=== PATIENT | female | born 1950 | race Caucasian/White ===

== ENCOUNTER → 2018-11-20 05:37 | Outpatient (REF) | payer MEDICARE, BC, SELFPAY ==
[2018-11-24 06:25] LABS: QuantiFERON-TB Gold Plus Positive (Negative)
== END ==
LOC: LAB 05:37
PROVIDERS: Visit Provider Emergency Medicine
DX: J18.9 Pneumonia, unspecified organism (principal); E11.9 Type 2 diabetes mellitus without complications; E78.5 Hyperlipidemia, unspecified; I50.9 Heart failure, unspecified; K21.9 Gastro-esophageal reflux disease without esophagitis
CPT/HCPCS: 86480

== ENCOUNTER 2019-01-27 17:15 | Observation (INO) ==
--- NOTE | 2019-01-27 17:19 | Emergency Department Note ---
ED Disposition Clinical Impression: Precordial chest pain Disposition: Admitted as Observation Condition on Discharge: Good Referrals: Provider,Referral, [Primary Care Provider] - - Critical Care Critical Care Time: No Attestation: On , the high probability of a clinically significant, sudden or life threatening deterioration of the following system(s) required my full and direct attention, intervention and personal management. The time I documented below is in addition to time spent performing reported procedures but includes the following listed in this critical care notation. Medical Decision Making - Ammon Inquiry Pt receiving controlled substance: No Vital Signs: 01/27/19 17:16 01/27/19 17:53 Temperature 98.1 F Temperature Source Oral Pulse Rate [Apical] 80 95 H Respiratory Rate 20 Blood Pressure [Right Arm] 118/75 122/63 Blood Pressure Mean [Right Arm] 89 82 Blood Pressure Source [Right Arm] Automatic Cuff Automatic Cuff Blood Pressure Position [Right Arm] Sitting Sitting 02 Sat by Pulse Oximetry 96 97 Oxygen Delivery Method Nasal Cannula Nasal Cannula Oxygen Flow Rate (LPM) 3 2 - Lab Data Lab Results 01/27/19 17:10: WBC 7.4, RBC 4.72, Hgb 12.2, Hct 39.5, MCV 83.7, MCH 25.9 L, MCHC 31.0 L, RDW 14.8, Plt Count 238, MPV 8.6, Neut % (Auto) 67.9, Lymph % ( Auto) 22.4, [place] % (Auto) 5.2, Eos % (Auto) 4.1, Baso % (Auto) 0.4, Neut # (Auto) 5.0, Lymph # (Auto) 1.7, [place] # (Auto) 0.4, Eos # (Auto) 0.3, Baso # (Auto) 0.0 01/27/19 17:10: D-Dimer < 100 01/27/19 18:15: Sodium 144, Potassium 3.3 L, Chloride 106, Carbon Dioxide 33 H, Anion Gap 8.3, BUN 13, Creatinine 0.45 L, Estimated Creat Clear 89, Estimated GFR 139, Est GFR ( Amer) 169, Glucose 73 L, Calcium 8.6, Troponin I 0.07 H 01/27/19 19:12: POC Glucose 64 L Result diagrams: 01/27/19 17:10 01/27/19 18:15 Orders (Tests/Meds): ED MEDICATIONS Generic Name Dose Route Start Last Admin Trade Name Melodie PRN Reason Stop Dose Admin Sodium Chloride 10 ml 01/27/19 17:26 Saline Flush 10ml Syringe IV 02/26/19 17:25 NEEDED PRN Maintain IV Site - Radiology Data #1 Image(s): Chest Image Reviewed: Yes I reviewed the patient's radiology image persistent increased markings RLL - ECG Data Tracing #1 EKG interpreted by Geo Euceda MD: Rhythm: sinus Rate: 77 [place]: Left Ectopy: Premature atrial contractions Conduction: normal ST Segment Changes: none T Wave Changes: none Q Waves: none Poor R wave progression Low voltage QRS Prior electrocardiagrams reviewed. No change from prior tracings. - Physician Consults Physician Consulted: Mariya Trejo Time: 19:40 Reason -: Admission Comment/Response: Agrees to admit the patient to the hospital. We discussed the patient's clinical information, including history, exam, laboratory and radiology results and ED course. Per hospital procedure, I will write temporary bridge inpatient orders on the patient. Specific orders requested by the admitting physician: Serial cardiac enzymes Additional Consult: Neil - present Time: 20:15 Reason -: Pt condition Comment/Response: add ECHO and cardiology consult - FEMI Score for Non-Stemi Age of Patient: 60-69 years old Heart Rate: 70-89 bpm Systolic Blood Pressure: 100-119 mmHg Serum Creatinine: 0.40-0.79 mg/dl CHF [place] Class: I-No CHF Other Risk Factors: Elevated Cardiac Enzymes or Biomarkers Non-Stemi Risk Score: 128 General Adult HPI - General Stated complaint: chest pain Time Seen by Provider: 01/27/19 17:45 - History of Present Illness HPI narrative: Brought in by ambulance from [facility]. Complains of constant chest pain in her left anterior chest into her neck and left shoulder blades since this morning. Worsens with cough, but not with breathing. She does feel short of air. She does have a cough. Denies hemoptysis. Legs have been sore for a couple of weeks. Seen in this emergency department 01/07/19 for chest pain and was diagnosed with pneumonia. Treated with antibiotics. Still has a cough. No fever. - Related Data Home Medications Medication Instructions Recorded Confirmed Albuterol Sulfate [Albuterol 2.5 mg INHALATION Q6H 01/07/19 01/07/19 0.083% 2.5mg/3mL neb] Aspirin [Low Dose Aspirin EC] 81 mg PO DAILY 01/07/19 01/07/19 Bisacodyl [Women's Laxative] 5 mg PO QHS 01/07/19 Gabapentin [Gabapentin 100mg Cap] 100 mg PO DAILY 01/07/19 01/07/19 Insulin Detemir [Levemir U-100 30 unit SQ QHS 01/07/19 01/07/19 Insulin] Insulin Lispro [Humalog U-100 1 sliding scale dose SQ 01/07/19 01/07/19 Insulin] USEASDIRECTD Mirtazapine 30 mg PO HS 01/07/19 01/07/19 PARoxetine HCl [Paxil] 30 mg PO DAILY 01/07/19 01/07/19 Tiotropium [place] [Spiriva 1 puff IH DAILY 01/07/19 01/07/19 18mcg/puff inhaler] Ziprasidone HCl [Geodon 40mg 40 mg PO BID 01/07/19 01/07/19 capsule] raNITIdine HCl [Ranitidine HCl] 150 mg PO BID 01/07/19 01/07/19 Previous Rx's Medication Instructions Recorded diphenhydramine 25 mg capsule 50 mg PO QHS PRN #60 cap 11/26/18 tiotropium bromide 1.25 2 puff INHALATION DAILY #4 g 11/26/18 mcg/actuation mist for inhalation ziprasidone 60 mg capsule 60 mg PO BID #60 cap 11/26/18 ziprasidone 60 mg capsule 60 mg PO BID #60 cap 11/26/18 cefUROXime axetil [Ceftin 500mg 500 mg PO BID #20 tab 01/07/19 Tab (GEQ)] Allergies Allergy/AdvReac Type Severity Reaction Status Date / Time acetaminophen [From Tylenol] Allergy Unknown Verified 01/07/19 14:55 lansoprazole [From Prevacid] Allergy Unknown Verified 01/07/19 14:55 omeprazole [From Prilosec] Allergy Unknown Verified 01/07/19 14:55 Sulfa (Sulfonamide Allergy Unknown Verified 01/07/19 14:55 Antibiotics) [facility] History - Hepatitis A Screen Attestation statement:: This patient has been screened for Hepatitis A risk factors. Medical History: Reports:: Diabetes Mellitus Type 2 - Social History Smoking Status: Current every day smoker Tobacco Type: cigarettes # Packs/Day (cigarettes): 1 Alcohol Intake: never Occupational Status: retired ROS Obtained: Yes All systems reviewed & no additional complaints - Constitutional Constitutional: Denies fever(s) - Cardiovascular Cardiovascular: Reports chest pain, Denies diaphoresis - Respiratory Respiratory: Yes cough, Yes dyspnea - Gastrointestinal Gastrointestingal: Denies: abdominal pain, nausea, vomiting - Musculoskeletal Musculoskeletal: Reports other Comments: Bilateral leg pain and swelling Physical Exam - General General appearance: alert, in no apparent distress - Head Head exam: atraumatic, normocephalic - Eye Eye exam: Present: normal appearance, PERRL, EOMI - ENT ENT exam: Present: normal exam, mucous membranes moist - Neck Neck exam: Present: normal inspection, trachea midline - Chest Chest inspection: Present: normal inspection, symmetric chest wall rise, tenderness (Left anterior) - Respiratory Respiratory exam: Present: normal lung sounds bilaterally. Absent: respiratory distress - Cardiovascular Cardiovascular exam: Present: regular rate, normal rhythm, normal heart sounds - Abdominal Exam Abdominal exam: Present: soft. Absent: distention, tenderness, guarding - Extremities Exam Extremities exam: Present: other (Bilateral venous stasis changes, symmetric) - Neurological Exam Neurological exam: Present: alert - Psychiatric Psychiatric exam: Present: normal affect, normal mood - Skin Skin exam: Present: warm, dry
[2019-01-27 17:44] LABS: Basophils % 0.4 % (0.1-2.0); Eosinophils # 0.3 K/mm3 (0.0-0.4); Eosinophils % 4.1 % (0.1-12.0); Hematocrit 39.5 % (37.0-47.0); Hemoglobin 12.2 g/dL (12.2-16.2); Lymphocytes # 1.7 K/mm3 (0.7-4.5); Lymphocytes % 22.4 % (10-50); Mean Corpuscular Hemoglobin 25.9 pg (27.0-31.2); Mean Corpuscular Volume 83.7 fl (81-99); Mean Platelet Volume 8.6 fl (7.4-10.4); Monocytes # 0.4 K/mm3 (0.1-1.0); Monocytes % 5.2 % (1.7-9.3); Neutrophils % 67.9 % (37.0-80.0); Platelet Count 238 K/mm3 (142-424); Red Blood Count 4.72 M/mm3 (4.20-5.40); Red Cell Distribution Width 14.8 % (11.5-17.5); White Blood Count 7.4 K/mm3 (4.8-10.8)
[2019-01-27 18:32] LABS: Anion Gap 8.3 mEq/L (5-15); Calcium 8.6 mg/dL (8.5-10.1); Potassium 3.3 mmoL/L (3.5-5.1)
--- NOTE | 2019-01-28 07:33 | Pharmacy Consult Notes ---
[facility] Pharmacy VTE Monitoring - Patient Demographics Admission date: 01/27/19 Report Date: 01/28/19 Time: 07:32 Allergies/Adverse Reactions: Patient Allergies acetaminophen [From Tylenol] Allergy (Unknown, Verified 01/27/19 21:14) lansoprazole [From Prevacid] Allergy (Unknown, Verified 01/27/19 21:14) omeprazole [From Prilosec] Allergy (Unknown, Verified 01/27/19 21:14) Sulfa (Sulfonamide Antibiotics) Allergy (Unknown, Verified 01/27/19 21:14) Height: 1.7 m Weight: 107.955 kg Patient Problems: Current Active Problems Precordial chest pain (Acute) - VTE Risk Labs: VTE Related Lab Results Hgb 12.2 g/dL (12.2-16.2) 01/27/19 17:10 Hct 39.5 % (37.0-47.0) 01/27/19 17:10 Plt Count 238 K/mm3 (142-424) 01/27/19 17:10 BUN 13 mg/dL (7-18) 01/27/19 18:15 Creatinine 0.45 mg/dL (0.55-1.02) L 01/27/19 18:15 Estimated Creat Clear 89 mL/min (50-200) 01/27/19 18:15 Was VTE Risk Assessment Performed: Yes VTE Score: 8 VTE Risk Level: Moderate Risk - Prophylaxis VTE Prophylaxis Ordered?: Yes Types of VTE Prophylaxis: TEDS Knee High Location of Applied Device: Bilateral Lower Extremeties - VTE Diagnosis Confirmed Treatment or plan recommended: Continue Current Treatment
--- NOTE | 2019-01-28 07:58 | Consult Report ---
History of Present Illness Consult date: 01/28/19 Requesting physician: Julio Cesar Trejo Consult reason: chest pain Chief complaint: Chest pain Additional Medical History:: 1. Diabetes mellitus, treated for many years 2. Tobacco use since age 17 3. Hypertension 4. Hyperlipidemia History of present illness: 68-year-old white female resident of local residential complained of recurrent episodes of chest pressure and discomfort with radiation into the neck and the shoulder. Symptoms not particularly associated with exertion but patient was sent to the emergency department for further evaluation. EKG shows sinus rhythm with nonspecific ST-T abnormalities and troponins have returned mildly elevated consistent with non-ST elevation TN. Cardiology consulted for evaluation recommendations. Preliminary echocardiogram performed this morning shows preserved ejection fraction with small pericardial effusion and mild valvular disease. Patient relates history of previous TN x2 with remote cardiac cath greater than 5 years ago in [place], [place]. She does not recall intervention or stenting being performed. [facility] History Medical History: Reports:: Diabetes Mellitus Type 2, Hyperlipidemia, Hypertension *Have you ever received a pneumonia vaccine?: Yes *Have you received a flu vaccine this season?: Yes Other Surgeries: Yes: Hysterectomy-Total - *Social History Educational Level: Attended Grade School Smoking Status: Current every day smoker Tobacco Type: cigarettes # Packs/Day (cigarettes): 1 Alcohol Intake: never *Occupational Status:: retired Housing: residential *Travel in the last 8 weeks: None - Psychiatric History Expresses thoughts of harming self/others: None Suicide Plan Description: No Plan Family Hx:: Cancer Meds Home Medications Medication Instructions Recorded Confirmed Type Albuterol Sulfate [Albuterol 2.5 mg INHALATION Q6HP PRN 01/07/19 01/28/19 History 0.083% 2.5mg/3mL neb] Aspirin [Low Dose Aspirin EC] 81 mg PO DAILY 01/07/19 01/27/19 History Bisacodyl [Women's Laxative] 5 mg PO DAILYP PRN 01/07/19 01/28/19 History Gabapentin [Gabapentin 100mg Cap] 100 mg PO HS 01/07/19 01/28/19 History Insulin Detemir [Levemir U-100 30 unit SQ DAILY 01/07/19 01/27/19 History Insulin] Insulin Lispro [Humalog U-100 1 sliding scale dose SQ DIRECTED 01/07/19 01/28/19 History Insulin] Mirtazapine 30 mg PO HS 01/07/19 01/27/19 History PARoxetine HCl [Paxil] 30 mg PO DAILY 01/07/19 01/27/19 History Ziprasidone HCl [Geodon 40mg 40 mg PO BID 01/07/19 01/27/19 History capsule] raNITIdine HCl [Ranitidine HCl] 150 mg PO BID 01/07/19 01/27/19 History Fluticasone/Salmeterol [Advair 1 puff INHALATION BID 01/27/19 01/27/19 History 500/50mcg diskus] Latanoprost/Pf [Latanoprost 0.005% 1 drop OP HS 01/27/19 01/28/19 History Eye Drop] Tiotropium [place] [Spiriva 1 puff IH DAILY 01/27/19 01/27/19 History 18mcg/puff inhaler] diphenhydrAMINE HCl [Q-Dryl] 50 mg PO HSP PRN 01/27/19 01/28/19 History Ipratropium/Albuterol Sulfate 3 ml IH Q4HP PRN 01/28/19 01/28/19 History [Duoneb 3mL neb] Allergies Allergy/AdvReac Type Severity Reaction Status Date / Time acetaminophen [From Tylenol] Allergy Unknown Verified 01/27/19 21:14 lansoprazole [From Prevacid] Allergy Unknown Verified 01/27/19 21:14 omeprazole [From Prilosec] Allergy Unknown Verified 01/27/19 21:14 Sulfa (Sulfonamide Allergy Unknown Verified 01/27/19 21:14 Antibiotics) Review of Systems - *Cardiovascular Reports chest pain, Reports shortness of breath with activity - *Respiratory Reports cough, Reports shortness of breath with activity - *Gastrointestinal Denies abdominal pain, Denies loose stools - *Genitourinary Denies blood in urine - *Musculoskeletal Denies joint pain, Denies back pain - *Neurologic Denies seizure-like activity, Denies headache(s) Exam Vital signs and Labs for Last 24 Hours: Temp Pulse Resp BP Pulse Ox 98.2 F 84 19 135/76 91 L 01/28/19 04:00 01/28/19 06:16 01/28/19 04:00 01/28/19 04:00 01/28/19 06:16 Laboratory Results - last 24 hr 01/27/19 17:10: WBC 7.4, RBC 4.72, Hgb 12.2, Hct 39.5, MCV 83.7, MCH 25.9 L, MCHC 31.0 L, RDW 14.8, Plt Count 238, MPV 8.6, Neut % (Auto) 67.9, Lymph % (Auto) 22.4, [place] % (Auto) 5.2, Eos % (Auto) 4.1, Baso % (Auto) 0.4, Neut # (Auto) 5.0, Lymph # (Auto) 1.7, [place] # (Auto) 0.4, Eos # (Auto) 0.3, Baso # (Auto) 0.0 01/27/19 17:10: D-Dimer < 100 01/27/19 18:15: Sodium 144, Potassium 3.3 L, Chloride 106, Carbon Dioxide 33 H, Anion Gap 8.3, BUN 13, Creatinine 0.45 L, Estimated Creat Clear 89, Estimated GFR 139, Est GFR ( Amer) 169, Glucose 73 L, Calcium 8.6, Troponin I 0.07 H 01/27/19 19:12: POC Glucose 64 L 01/27/19 20:35: POC Glucose 149 H 01/27/19 22:13: POC Glucose 152 H 01/27/19 23:45: Troponin I 0.08 H 01/28/19 02:30: Troponin I 0.07 H 01/28/19 06:26: POC Glucose 201 H I & O for Last 24 hours: Intake & Output 01/25/19 01/26/19 01/27/19 01/28/19 11:59 11:59 11:59 11:59 Intake Total 120 / 120 Balance 120 / 120 Weight 238 lb - *Routine Neck Exam Present: supple. Absent: JVD, carotid bruit - *Routine Respiratory Exam Present: CTA bilaterally. Absent: accessory muscle use, rales, rhonchi, wheezes - *Routine Cardiovascular Exam Present: RRR. Absent: murmur, gallop, rubs - *Routine Extremities Exam Present: edema. Absent: calf tenderness - *Routine Neurological Exam Present: alert, oriented X3, moving all extremities Assessment and Plan (1) NSTEMI (non-ST elevated myocardial infarction) Current visit: Yes Status: Acute Category: Medical Code(s): I21.4 - Non-ST elevation (NSTEMI) myocardial infarction (2) Diabetes Current visit: Yes Status: Acute Category: Medical Code(s): E11.9 - Type 2 diabetes mellitus without complications (3) COPD (chronic obstructive pulmonary disease) Current visit: No Status: Chronic Qualifiers: Category: Medical Code(s): J44.9 - Chronic obstructive pulmonary disease, unspecified (4) Hypertension Current visit: No Status: Chronic Qualifiers: Hypertension type: essential hypertension Qualified Code(s): I10 - Essential (primary) hypertension Category: Medical Code(s): I10 - Essential (primary) hypertension (5) Tobacco abuse Current visit: No Status: Chronic Category: Medical Code(s): Z72.0 - Tobacco use - Assessment and plan all Dx Assessment and Plan for all problems:: 1. Proceed with cardiac cath today due to NSTEMI. 2. Will attempt to start low dose ARB and coreg due to DM and CAD/NSTEMI but may be limited by BP/pulse. 3. Continue ASA 81 mg daily.
--- NOTE | 2019-01-28 15:22 | H&P/Discharge Summary ---
General - General Admission date:: 01/27/19 Discharge date: 01/28/19 *Admission Date: 01/27/19 *Chief complaint: chest pain *History of present illness: this wf was sent from [facility] with chest pain - [facility]. Complains of constant chest pain in her left anterior chest into her neck and left shoulder blades since this morning. Worsens with cough, but not with breathing. She does feel short of air. She does have a cough. Denies hemoptysis. Legs have been sore for a couple of weeks. Seen in this emergency department 01/07/19 for chest pain and was diagnosed with pneumonia. Treated with antibiotics. Still has a cough. No fever. she was admitted for eval and treatment -and card eval [facility] History I have reviewed the patient's past medical history: Yes Medical History: Reports:: Diabetes Mellitus Type 2, Hyperlipidemia, Hypertension *Have you ever received a pneumonia vaccine?: Yes *Have you received a flu vaccine this season?: Yes Other Surgeries: Yes: Hysterectomy-Total - *Social History Educational Level: Attended Grade School Smoking Status: Current every day smoker Tobacco Type: cigarettes # Packs/Day (cigarettes): 1 Alcohol Intake: never *Occupational Status:: retired Housing: [facility] *Travel in the last 8 weeks: None - Psychiatric History Expresses thoughts of harming self/others: None Suicide Plan Description: No Plan Family Hx:: Cancer Review of Systems - Review of Systems Review of systems:: pertinent systems reviewed and negative unless documented below - Constitutional Denies fever(s) - Eyes Denies change in vision - ENT Denies throat swelling - *Cardiovascular Reports chest pain at rest, Reports shortness of breath, Reports radiating jaw, neck or arm pain - *Respiratory Denies cough - *Gastrointestinal Denies abdominal pain - *Genitourinary Denies blood in urine - *Musculoskeletal Reports joint pain, Denies limited joint movement - Integumentary/Breasts Denies rash - *Neurologic Denies seizure-like activity, Denies headache(s) - Psychiatric Denies anxiety Exam Vital signs and Labs for Last 24 Hours: Temp Pulse Resp BP Pulse Ox 98.4 F 82 18 145/93 H 96 01/28/19 08:02 01/28/19 14:25 01/28/19 14:25 01/28/19 14:25 01/28/19 14:25 Laboratory Results - last 24 hr 01/27/19 17:10: WBC 7.4, RBC 4.72, Hgb 12.2, Hct 39.5, MCV 83.7, MCH 25.9 L, MCHC 31.0 L, RDW 14.8, Plt Count 238, MPV 8.6, Neut % (Auto) 67.9, Lymph % (Auto) 22.4, [place] % (Auto) 5.2, Eos % (Auto) 4.1, Baso % (Auto) 0.4, Neut # (Auto) 5.0, Lymph # (Auto) 1.7, [place] # (Auto) 0.4, Eos # (Auto) 0.3, Baso # (Auto) 0.0 01/27/19 17:10: D-Dimer < 100 01/27/19 18:15: Sodium 144, Potassium 3.3 L, Chloride 106, Carbon Dioxide 33 H, Anion Gap 8.3, BUN 13, Creatinine 0.45 L, Estimated Creat Clear 89, Estimated GFR 139, Est GFR ( Amer) 169, Glucose 73 L, Calcium 8.6, Troponin I 0.07 H 01/27/19 19:12: POC Glucose 64 L 01/27/19 20:35: POC Glucose 149 H 01/27/19 22:13: POC Glucose 152 H 01/27/19 23:45: Troponin I 0.08 H 01/28/19 02:30: Troponin I 0.07 H 01/28/19 06:26: POC Glucose 201 H I & O for Last 24 hours: Intake & Output 01/26/19 01/27/19 01/28/19 01/29/19 11:59 11:59 11:59 11:59 Intake Total 480 / 480 Balance 480 / 480 Weight 238 lb - Constitutional no acute distress, obese - *Routine HEENT Exam Head: Present: normocephalic Eye: Present: EOMI, PERRL ENT: Present: mucous membranes dry - *Routine Neck Exam Present: supple. Absent: JVD - *Routine Respiratory Exam Present: decreased breath sounds - *Routine Cardiovascular Exam Present: RRR, murmur, S4 - *Routine Abdominal Exam Present: soft - *Routine Extremities Exam Present: edema. Absent: calf tenderness - *Routine Skin Exam Present: intact - *Routine Neurological Exam Present: alert, CN II-XII intact - Routine Psychiatric Exam Present: normal affect Hospital Course Hospital Course: pt with stable vs and was seen by card - 1. Diabetes mellitus, treated for many years 2. Tobacco use since age 17 3. Hypertension 4. Hyperlipidemia History of present illness: 68-year-old white female resident of local [facility] complained of recurrent episodes of chest pressure and discomfort with radiation into the neck and the shoulder. Symptoms not particularly associated with exertion but patient was sent to the emergency department for further evaluation. EKG shows sinus rhythm with nonspecific ST-T abnormalities and troponins have returned mildly elevated consistent with non-ST elevation [place]. Cardiology consulted for evaluation recommendations. Preliminary echocardiogram performed this morning shows preserved ejection fraction with small pericardial effusion and mild valvular disease. Patient relates history of previous [place] x2 with remote cardiac cath greater than 5 years ago in [place], [place]. She does not recall intervention or stenting being performed. Proceed with cardiac cath today due to NSTEMI. 2. Will attempt to start low dose ARB and coreg due to DM and CAD/NSTEMI but may be limited by BP/pulse. 3. Continue ASA 81 mg daily. pt had cath-GIOGRAPHIC RESULTS: 1. The left main artery normal 2. The left anterior descending artery normal 3. The circumflex artery normal 4. The right coronary artery dominant normal 5. The ELIAS ventriculogram reveals normal 65% 6. The left ventricular end-diastolic pressure 15 mmHg IMPRESSION: 1. Normal ejection fraction 2. Normal left ventricular function 3. Mildly elevated left ventricular end-diastolic pressure consistent with mild diastolic dysfunction pt will be d/c at this time and followed at [facility] Results Labs on day of discharge: Labs from last 24 hours 01/28/19 01/28/19 01/27/19 06:26 02:30 23:45 WBC RBC Hgb Hct MCV MCH MCHC RDW Plt Count MPV Neut % (Auto) Lymph % (Auto) [place] % (Auto) Eos % (Auto) Baso % (Auto) Neut # (Auto) Lymph # (Auto) [place] # (Auto) Eos # (Auto) Baso # (Auto) D-Dimer Sodium Potassium Chloride Carbon Dioxide Anion Gap BUN Creatinine Estimated Creat Clear Estimated GFR Est GFR ( Amer) Glucose POC Glucose 201 H Calcium Troponin I 0.07 H 0.08 H 01/27/19 01/27/19 01/27/19 22:13 20:35 19:12 WBC RBC Hgb Hct MCV MCH MCHC RDW Plt Count MPV Neut % (Auto) Lymph % (Auto) [place] % (Auto) Eos % (Auto) Baso % (Auto) Neut # (Auto) Lymph # (Auto) [place] # (Auto) Eos # (Auto) Baso # (Auto) D-Dimer Sodium Potassium Chloride Carbon Dioxide Anion Gap BUN Creatinine Estimated Creat Clear Estimated GFR Est GFR ( Amer) Glucose POC Glucose 152 H 149 H 64 L Calcium Troponin I 01/27/19 01/27/19 01/27/19 18:15 17:10 17:10 WBC 7.4 RBC 4.72 Hgb 12.2 Hct 39.5 MCV 83.7 MCH 25.9 L MCHC 31.0 L RDW 14.8 Plt Count 238 MPV 8.6 Neut % (Auto) 67.9 Lymph % (Auto) 22.4 [place] % (Auto) 5.2 Eos % (Auto) 4.1 Baso % (Auto) 0.4 Neut # (Auto) 5.0 Lymph # (Auto) 1.7 [place] # (Auto) 0.4 Eos # (Auto) 0.3 Baso # (Auto) 0.0 D-Dimer < 100 Sodium 144 Potassium 3.3 L Chloride 106 Carbon Dioxide 33 H Anion Gap 8.3 BUN 13 Creatinine 0.45 L Estimated Creat Clear 89 Estimated GFR 139 Est GFR ( Amer) 169 Glucose 73 L POC Glucose Calcium 8.6 Troponin I 0.07 H DS: Diagnosis - Discharge Diagnosis (1) NSTEMI (non-ST elevated myocardial infarction) Status: Acute (2) Diabetes Status: Acute (3) COPD (chronic obstructive pulmonary disease) Status: Chronic (4) Hypertension Status: Chronic (5) Tobacco abuse Status: Chronic (6) Obesity (BMI 30-39.9) Status: Acute (7) Leg edema Status: Acute (8) Anxiety Status: Acute Discharge Medications - Medications for Discharge Home Medication List at Discharge: New Ziprasidone HCl [Geodon 20mg capsule] 40 mg PO BID capsule Irbesartan [Avapro 75mg tablet] 75 mg PO DAILY #90 tab Tiotropium [place] [Spiriva 18mcg/puff inhaler] 1 puffs IH DAILY puff Carvedilol [Coreg 3.125mg Tablet] 3.125 mg PO BID #60 tab Continue Mirtazapine 30 mg PO HS Insulin Detemir [Levemir U-100 Insulin] 30 unit SQ DAILY Insulin Lispro [Humalog U-100 Insulin] 1 sliding scale dose SQ DIRECTED Gabapentin [Gabapentin 100mg Cap] 100 mg PO HS Aspirin [Low Dose Aspirin EC] 81 mg PO DAILY Albuterol Sulfate [Albuterol 0.083% 2.5mg/3mL neb] 2.5 mg INHALATION Q6HP PRN PRN Reason: Shortness Of Breath PARoxetine HCl [Paxil] 30 mg PO DAILY Bisacodyl [Women's Laxative] 5 mg PO DAILYP PRN PRN Reason: Constipation Fluticasone/Salmeterol [Advair 500/50mcg diskus] 1 puff INHALATION BID Ipratropium/Albuterol Sulfate [Duoneb 3mL neb] 3 ml IH Q4HP PRN PRN Reason: Shortness Of Breath Ziprasidone HCl [Geodon 40mg capsule] 40 mg PO BID diphenhydrAMINE HCl [Q-Dryl] 50 mg PO HSP PRN PRN Reason: Itching No Action raNITIdine HCl [Ranitidine HCl] 150 mg PO BID Tiotropium [place] [Spiriva 18mcg/puff inhaler] 1 puff IH DAILY Latanoprost/Pf [Latanoprost 0.005% Eye Drop] 1 drop OP HS
--- NOTE | 2019-01-28 18:56 | Cardiology Report ---
PROCEDURE: 2-D M-mode and color Doppler study INDICATIONS FOR THE TEST: Chest pain + COPD+ Heart Murmur Tobacco Smoking+ Palpitations Fatigue Syncope Edema Hypertension Diabetes Mellitus+ Rheumatic Fever SOB ESTRADA Obesity Hyperlipidemia Family History HD Additional History elevated troponin PATIENT INFORMATION HEIGHT: 67 WEIGHT:225 GENDER: Female B/P:122/63 2-D/M-MODE INTERPRETATION: 2-D MEASUREMENTS OBSERVED VALUES IN CMS Right Ventricular Dimension (RVDd) 1.9 Interventricular Septum (Thickness)(IVsd) 1.3 Left Ventricular Internal Dimensions(LVIDd) 5.5 Left Ventricular Posterior Wall (Thickness)(LVPWd) 1.0 Aortic Root 2.6 Aortic Cusp Separation 2.2 Left Atrial Dimensions (LAD) 3.2 2D 1. Left atrium is mildly enlarged, left ventricle is normal size, mild concentric left ventricular hypertrophy, visually estimated ejection fraction of 55% with no regional wall motion abnormality. 2. The right atrium and ventricle are mildly enlarged with normal contractility. 3. The aortic valve is minimally thickened and fibrosed. 4. Mitral and tricuspid valvular grossly normal. 5. The pulmonic valve is poorly visualized. 6. Small pericardial effusion noted. DOPPLER INTERROGATION: Doppler interrogation of the aortic, mitral and tricuspid valvular presence of mild mitral and tricuspid regurgitation, tricuspid regurgitation jet velocity is inadequate for calculation of the right ventricular systolic pressure, grade 1 diastolic dysfunction seen without tissue Doppler evidence of raised left atrial pressure, inferior vena cava is normal size with normal inspiratory collapse. CONCLUSION: 1. Mild biatrial enlargement, normal left ventricular size, mild concentric left ventricular hypertrophy, visually estimated ejection fraction 55% with no regional wall motion abnormality, grade 1 diastolic dysfunction seen without tissue Doppler evidence of raised left atrial pressure, vena cava is normal size with normal inspiratory collapse. 2. Mild mitral and tricuspid regurgitation 3. Small pericardial effusion noted.
== END 2019-01-28 17:25 ==
LOC: 2ND 17:15 → ER 17:15 → 2ND 20:46
PROVIDERS: ADMIT Internal Medicine Adolescent Medicine; ATTEND Emergency Medicine
CPT/HCPCS: 36415; 71010; 71045; 80048; 82962; 84484; 85025; 85378; 93005; 93306; 93458; 94640; 94760; 99152; 99284; C1725; C1769; G0378; J1644; Q9967

== ENCOUNTER 2019-03-26 14:50 | Observation (INO) ==
--- NOTE | 2019-03-26 15:54 | Emergency Department Note ---
ED Disposition Clinical Impression: Congestive heart failure Qualifiers: Heart failure type: diastolic Heart failure chronicity: acute on chronic Qualified Code(s): I50.33 - Acute on chronic diastolic (congestive) heart failure Disposition: Admitted as Observation Condition on Discharge: Fair Referrals: Julio Cesar Trejo MD [Primary Care Provider] - - Critical Care Critical Care Time: No Attestation: On 03/26/19, the high probability of a clinically significant, sudden or life threatening deterioration of the following system(s) required my full and direct attention, intervention and personal management. The time I documented below is in addition to time spent performing reported procedures but includes the following listed in this critical care notation. Medical Decision Making - [place] Inquiry Pt receiving controlled substance: No Vital Signs: 03/26/19 14:51 03/26/19 15:20 03/26/19 16:04 Temperature 98.5 F 98.3 F Temperature Source Oral Oral Pulse Rate 84 Pulse Rate [Left Radial] 90 89 Respiratory Rate 22 20 Blood Pressure [Right Arm] 142/73 H 141/62 H Blood Pressure Mean [Right Arm] 96 88 Blood Pressure Source [Right Arm] Automatic Cuff Automatic Cuff Blood Pressure Position [Right Arm] Sitting Supine 02 Sat by Pulse Oximetry 91 L 98 Oxygen Delivery Method Nasal Cannula Nasal Cannula Oxygen Flow Rate (LPM) 5 03/26/19 16:30 03/26/19 17:00 03/26/19 17:30 Temperature 98.3 F 98.1 F 98.3 F Temperature Source Oral Oral Oral Pulse Rate Pulse Rate [Left Radial] 89 81 85 Respiratory Rate 20 20 18 Blood Pressure [Right Arm] 134/72 124/56 L Blood Pressure Mean [Right Arm] 92 78 Blood Pressure Source [Right Arm] Automatic Cuff Automatic Cuff Automatic Cuff Blood Pressure Position [Right Arm] Supine Supine Supine 02 Sat by Pulse Oximetry 98 95 95 Oxygen Delivery Method Nasal Cannula Nasal Cannula Nasal Cannula Oxygen Flow Rate (LPM) - Lab Data Lab Results 03/26/19 15:34: WBC 8.8, RBC 4.98, Hgb 12.6, Hct 41.6, MCV 83.4, MCH 25.2 L, MCHC 30.2 L, RDW 14.7, Plt Count 229, MPV 7.9, Neut % (Auto) 72.9, Lymph % (Auto) 16.6, [place] % (Auto) 6.3, Eos % (Auto) 3.8, Baso % (Auto) 0.5, Neut # (Auto) 6.4, Lymph # (Auto) 1.5, [place] # (Auto) 0.6, Eos # (Auto) 0.3, Baso # (Auto) 0.1 03/26/19 15:34: Sodium 142, Potassium 4.6, Chloride 102, Carbon Dioxide 38 H, Anion Gap 6.6, BUN 21 H, Creatinine 0.67, Estimated Creat Clear 79, Estimated GFR 88, Est GFR ( Amer) 107, Glucose 262 H, Calcium 8.8 03/26/19 15:34: Lactate 1.2 03/26/19 15:34: B-Natriuretic Peptide 22 03/26/19 15:34: Troponin I 0.02 03/26/19 16:20: Urine Color Yellow, Urine Appearance Clear, Urine pH 7.0, Ur Specific [place] 1.010, Urine Protein Negative, Urine Glucose (UA) Negative, Urine Ketones Negative, Urine Blood Negative, Urine Nitrate Negative, Urine Bilirubin Negative, Urine Urobilinogen 0.2, Ur Leukocyte Esterase Negative, Urine WBC Occasional, Ur Squamous Epith Cells 3-5 Result diagrams: 03/26/19 15:34 03/26/19 15:34 Orders (Tests/Meds): ED MEDICATIONS Discontinued Medications Generic Name Dose Route Start Last Admin Trade Name Freq PRN Reason Stop Dose Admin Albuterol/Ipratropium 3 ml 03/26/19 14:58 03/26/19 15:20 Duoneb 3ml Neb IH 03/26/19 14:59 3 ml ONCE ONE Administration Furosemide 40 mg 03/26/19 16:10 03/26/19 16:31 Lasix 40mg/4ml Vial IV 03/26/19 16:11 40 mg ONCE ONE Administration Methylprednisolone Sodium Succinate 125 mg 03/26/19 14:58 03/26/19 15:36 Solu-Medrol 125mg/2ml Vial IV 03/26/19 14:59 125 mg ONCE ONE Administration ORDERS Category Date Time Status Blood Culture Stat Micro 03/26/19 15:34 Received - Radiology Data #1 Image(s): Chest Image Reviewed: Yes I have reviewed radiologist's interpretation FINDINGS: Cardiomegaly with pulmonary venous congestion consistent with CHF. No interstitial edema. Small left pleural effusion. IMPRESSION: Congestive heart failure Dictated By: Wes Smith MD Signed By: <Electronically signed by Wes Smith MD in [place]> 03/26/19 1520 - ECG Data Tracing #1 EKG interpreted by Geo Euceda MD: Rhythm: sinus Rate: 78 [place]: Left Ectopy: Premature ventricular contraction Conduction: normal ST Segment Changes: none T Wave Changes: none Q Waves: none Poor R wave progression - Physician Consults Physician Consulted: Mariya Trejo Time: 17:36 Reason -: Admission Comment/Response: Agrees to admit the patient to the hospital. We discussed the patient's clinical information, including history, exam, laboratory and radiology results and ED course. Per hospital procedure, I will write [place] bridge inpatient orders on the patient. Specific orders requested by the admit [facility] physician: Repeat Lasix tonight, then Lasix 40 mg IV twice daily Medical Decision Narrative: Prior echocardiogram result: CONCLUSION: 1. Mild biatrial enlargement, normal left ventricular size, mild concentric left ventricular hypertrophy, visually estimated ejection fraction 55% with no regional wall motion abnormality, grade 1 diastolic dysfunction seen without tissue Doppler evidence of raised left atrial pressure, vena cava is normal size with normal inspiratory collapse. 2. Mild mitral and tricuspid regurgitation 3. Small pericardial effusion noted. Dictated By: Bryce Castillo MD Signed By: <Electronically signed by Bryce Castillo MD in [place]> 01/28/19 1851 General Adult HPI - General Chief complaint: Shortness of Breath/Dyspnea Stated complaint: soa Time Seen by Provider: 03/26/19 15:54 Mode of Arrival: EMS Limitations: No Limitations Description of Symptoms (Recalled from ER Triage Doc. by RN): Pt states she thinks she has fluid on her chest. c/o increased SOA that started a few days ago - History of Present Illness HPI narrative: Complains of shortness of breath, cough producing clear sputum, and swelling of legs for 4 to 5 days. Feels like she has fluid in her lungs. Denies fever. Has had a tightness in her chest off and on that lasts about 5 minutes per episode. Says that she is seen Dr. Saini for cardiology here before. She takes Lasix 40 mg once a day and says she has been having a good diuretic response. - Related Data Home Medications Medication Instructions Recorded Confirmed Albuterol Sulfate [Albuterol 2.5 mg INHALATION Q6HP PRN 01/07/19 03/26/19 0.083% 2.5mg/3mL neb] Aspirin [Low Dose Aspirin EC] 81 mg PO DAILY 01/07/19 03/26/19 Bisacodyl [Women's Laxative] 5 mg PO DAILYP PRN 01/07/19 03/26/19 Gabapentin [Gabapentin 100mg Cap] 100 mg PO HS 01/07/19 03/26/19 Insulin Detemir [Levemir 100 30 unit SQ DAILY 01/07/19 03/26/19 units/mL 10mL vial] Insulin Lispro [Humalog] 1 sliding scale dose SQ DIRECTED 01/07/19 03/26/19 Mirtazapine 30 mg PO HS 01/07/19 03/26/19 PARoxetine HCl [Paxil] 30 mg PO DAILY 01/07/19 03/26/19 raNITIdine HCl [Ranitidine HCl] 150 mg PO BID 01/07/19 03/26/19 Fluticasone/Salmeterol [Advair 1 puff INHALATION BID 01/27/19 03/26/19 500/50mcg diskus] Latanoprost/Pf [Latanoprost 0.005% 1 drp OP HS 01/27/19 03/26/19 Eye Drop] Tiotropium [place] [Spiriva 1 puff IH DAILY 01/27/19 03/26/19 18mcg/puff inhaler] diphenhydrAMINE HCl [Q-Dryl] 50 mg PO HSP PRN 01/27/19 03/26/19 Ipratropium/Albuterol Sulfate 3 ml IH Q4HP PRN 01/28/19 03/26/19 [Duoneb 3mL neb] Carvedilol [Coreg 3.125mg Tablet] 3.125 mg PO BID 02/14/19 03/26/19 Irbesartan [Avapro 75mg 75 mg PO DAILY 02/14/19 03/26/19 tablet] Tiotropium [place] [Spiriva 1 puffs IH DAILY 02/14/19 03/26/19 18mcg/puff inhaler] Ziprasidone HCl [Geodon 20mg 40 mg PO BID 02/14/19 03/26/19 capsule] Allergies Allergy/AdvReac Type Severity Reaction Status Date / Time acetaminophen [From Tylenol] Allergy Unknown Verified 03/26/19 14:07 lansoprazole [From Prevacid] Allergy Unknown Verified 03/26/19 14:07 omeprazole [From Prilosec] Allergy Unknown Verified 03/26/19 14:07 Sulfa (Sulfonamide Allergy Unknown Verified 03/26/19 14:07 Antibiotics) [facility] History - Hepatitis A Screen Drug use history?: No High risk sexual behaviors?: No History of sexually transmitted infection?: No Currently employed?: No Childcare worker?: No Do you have indoor plumbing?: Yes Do you have electricity?: Yes Attestation statement:: This patient has been screened for Hepatitis A risk factors. I have reviewed the patient's past medical history: Yes Medical History: Reports:: Congestive Heart Failure, Chronic Obstructive Pulmona ry Disease (COPD), Depression, Diabetes Mellitus Type 2, Gastroesophageal Reflux Disease(GERD), Home Oxygen, Hyperlipidemia, Hypertension Other Surgeries: Yes: Cardiac Catheterization, Hysterectomy-Total - Social History Smoking Status: Current every day smoker Tobacco Type: cigarettes # Packs/Day (cigarettes): 1 #Yrs smoked (if former smoker): 50 Alcohol Intake: never Substance Use Type: denies use Occupational Status: retired Housing: intermediate - Psychiatric History Expresses thoughts of harming self/others: None Suicide Plan Description: No Plan Pschychiatric History:: Reports:: Depression Family Hx:: Cancer ROS Obtained: Yes All systems reviewed & no additional complaints - Constitutional Constitutional: Denies fever(s) - Cardiovascular Cardiovascular: Reports chest pain, Denies diaphoresis, Reports leg edema - Respiratory Respiratory: Yes cough, Yes dyspnea, No coughing up blood, No pain on inspiration - Gastrointestinal Gastrointestingal: Denies: abdominal pain, diarrhea, vomiting Physical Exam - General General appearance: alert, in no apparent distress - Head Head exam: atraumatic, normocephalic - Eye Eye exam: Present: normal appearance, EOMI - ENT ENT exam: Present: mucous membranes moist - Neck Neck exam: Present: normal inspection, trachea midline - Chest Chest inspection: Present: normal inspection, symmetric chest wall rise - Respiratory Respiratory exam: Present: other (Crackles in the bases bilaterally) - Cardiovascular Cardiovascular exam: Present: regular rate, normal rhythm, normal heart sounds - Abdominal Exam Abdominal exam: Present: soft. Absent: distention, tenderness - Extremities Exam Extremities exam: Present: normal capillary refill - Neurological Exam Neurological exam: Present: alert, oriented X3 - Psychiatric Psychiatric exam: Present: normal affect, normal mood - Skin Skin exam: Present: warm, dry - Other Other exam information: 2-3+ firm edema bilateral lower extremities with marked venous stasis changes and stasis dermatitis.
[2019-03-26 15:56] LABS: Basophils # 0.1 K/mm3 (0-0.2); Basophils % 0.5 % (0.1-2.0); Eosinophils # 0.3 K/mm3 (0.0-0.4); Eosinophils % 3.8 % (0.1-12.0); Hematocrit 41.6 % (37.0-47.0); Hemoglobin 12.6 g/dL (12.2-16.2); Lymphocytes # 1.5 K/mm3 (0.7-4.5); Lymphocytes % 16.6 % (10-50); Mean Corpuscular HGB Conc 30.2 g/dL (31.8-35.4); Mean Corpuscular Hemoglobin 25.2 pg (27.0-31.2); Mean Corpuscular Volume 83.4 fl (81-99); Mean Platelet Volume 7.9 fl (7.4-10.4); Monocytes # 0.6 K/mm3 (0.1-1.0); Monocytes % 6.3 % (1.7-9.3); Neutrophils # 6.4 K/mm3 (1.8-7.8); Neutrophils % 72.9 % (37.0-80.0); Platelet Count 229 K/mm3 (142-424); Red Blood Count 4.98 M/mm3 (4.20-5.40); Red Cell Distribution Width 14.7 % (11.5-17.5); White Blood Count 8.8 K/mm3 (4.8-10.8)
[2019-03-26 16:00] LABS: Anion Gap 6.6 mEq/L (5-15); Calcium 8.8 mg/dL (8.5-10.1); Potassium 4.6 mmoL/L (3.5-5.1)
[2019-03-26 16:37] LABS: Appearance,Urine CLEAR (Clear); Bilirubin,Urine Negative (Negative); Blood, Urine Negative (Negative); Color,Urine YELLOW (Yellow); Glucose,Urine (UA) Negative (Negative); Ketones,Urine Negative (Negative); Leukocyte Esterase,Urine Negative (Negative); Microscopic, Urine URINE MICROSCOPIC (MICROSCOPIC); Protein,Urine Negative (Negative); Urobilinogen,Urine 0.2 EU/dl (0.2)
[2019-03-26 16:56] LABS: WBC,Urine Occasional #/hpf (0-3)
--- NOTE | 2019-03-26 20:11 | History & Physical Report ---
*Admission Date: 03/26/19 *Chief complaint: sob *History of present illness: this wf presented to the ed with sob omplains of shortness of breath, cough producing clear sputum, and swelling of legs for 4 to 5 days. Feels like she has fluid in her lungs. Denies fever. Has had a tightness in her chest off and on that lasts about 5 minutes per episode. Says that she is seen Dr. Saini for cardiology here before. She takes Lasix 40 mg once a day and says she has been having a good diuretic response. pt did report some chest pain su with exertion - pt admitted for treatment and eval [facility] History I have reviewed the patient's past medical history: Yes Medical History: Reports:: Congestive Heart Failure, Chronic Obstructive Pulmonary Disease (COPD), Depression, Diabetes Mellitus Type 2, Gastroesophageal Reflux Disease(GERD), Home Oxygen, Hyperlipidemia, Hypertension *Have you ever received a pneumonia vaccine?: Yes *Have you received a flu vaccine this season?: No Other Surgeries: Yes: Cardiac Catheterization, Hysterectomy-Total - *Social History Smoking Status: Current every day smoker Tobacco Type: cigarettes # Packs/Day (cigarettes): 1 #Yrs smoked (if former smoker): 50 Alcohol Intake: never Substance Use Type: denies use *Occupational Status:: retired Housing: [facility] *Travel in the last 8 weeks: None - Psychiatric History Expresses thoughts of harming self/others: None Suicide Plan Description: No Plan Pschychiatric History:: Reports:: Depression Family Hx:: Cancer Review of Systems - Review of Systems Review of systems:: pertinent systems reviewed and negative unless documented below - Constitutional Reports weakness, Denies fever(s) - Eyes Denies change in vision - ENT Denies sore throat - *Cardiovascular Reports chest pain at rest, Reports chest pain with activity, Reports shortness of breath - *Respiratory Reports shortness of breath, Denies cough, Denies coughing up blood - *Gastrointestinal Denies abdominal pain - *Genitourinary Denies blood in urine - *Musculoskeletal Reports joint pain - Integumentary/Breasts Denies rash - *Neurologic Denies seizure-like activity - Psychiatric Reports anxiety Meds Home Medications Medication Instructions Recorded Confirmed Type Aspirin [Low Dose Aspirin EC] 81 mg PO DAILY 01/07/19 03/26/19 History Gabapentin [Gabapentin 100mg Cap] 100 mg PO BID 01/07/19 03/27/19 History Insulin Detemir [Levemir 100 30 unit SQ DAILY 01/07/19 03/27/19 History units/mL 10mL vial] Insulin Lispro [Humalog] 1 sliding scale dose SQ DIRECTED 01/07/19 03/27/19 History Mirtazapine 30 mg PO HS 01/07/19 03/26/19 History PARoxetine HCl [Paxil] 30 mg PO DAILY 01/07/19 03/26/19 History raNITIdine HCl [Ranitidine HCl] 150 mg PO BID 01/07/19 03/26/19 History Fluticasone/Salmeterol [Advair 1 puff INHALATION BID 01/27/19 03/26/19 History 500/50mcg diskus] Latanoprost/Pf [Latanoprost 0.005% 1 drp OP HS 01/27/19 03/26/19 History Eye Drop] Irbesartan [Avapro 75mg 75 mg PO DAILY 02/14/19 03/26/19 History tablet] Tiotropium [place] [Spiriva 1 puffs IH DAILY 02/14/19 03/26/19 History 18mcg/puff inhaler] Ziprasidone HCl [Geodon 20mg 40 mg PO BID 02/14/19 03/26/19 History capsule] Brimonidine Tartrate [Alphagan P] 1 drp OP TID 03/27/19 03/27/19 History Carvedilol [Carvedilol 3.125mg Tab] 3.125 mg PO BID 03/27/19 03/27/19 History Allergies Allergy/AdvReac Type Severity Reaction Status Date / Time acetaminophen [From Tylenol] Allergy Unknown Verified 03/26/19 14:07 lansoprazole [From Prevacid] Allergy Unknown Verified 03/26/19 14:07 omeprazole [From Prilosec] Allergy Unknown Verified 03/26/19 14:07 Sulfa (Sulfonamide Allergy Unknown Verified 03/26/19 14:07 Antibiotics) Exam Vital signs and Labs for Last 24 Hours: Temp Pulse Resp BP Pulse Ox 98.0 F 90 17 135/96 H 90 L 03/26/19 20:00 03/26/19 20:00 03/26/19 20:00 03/26/19 20:00 03/26/19 20:00 Laboratory Results - last 24 hr 03/26/19 15:34: WBC 8.8, RBC 4.98, Hgb 12.6, Hct 41.6, MCV 83.4, MCH 25.2 L, MCHC 30.2 L, RDW 14.7, Plt Count 229, MPV 7.9, Neut % (Auto) 72.9, Lymph % (Auto) 16.6, [place] % (Auto) 6.3, Eos % (Auto) 3.8, Baso % (Auto) 0.5, Neut # (Auto) 6.4, Lymph # (Auto) 1.5, [place] # (Auto) 0.6, Eos # (Auto) 0.3, Baso # ( Auto) 0.1 03/26/19 15:34: Sodium 142, Potassium 4.6, Chloride 102, Carbon Dioxide 38 H, Anion Gap 6.6, BUN 21 H, Creatinine 0.67, Estimated Creat Clear 79, Estimated GFR 88, Est GFR ( Amer) 107, Glucose 262 H, Calcium 8.8 03/26/19 15:34: Lactate 1.2 03/26/19 15:34: B-Natriuretic Peptide 22 03/26/19 15:34: Troponin I 0.02 03/26/19 16:20: Urine Color Yellow, Urine Appearance Clear, Urine pH 7.0, Ur Specific [place] 1.010, Urine Protein Negative, Urine Glucose (UA) Negative, Urine Ketones Negative, Urine Blood Negative, Urine Nitrate Negative, Urine Bilirubin Negative, Urine Urobilinogen 0.2, Ur Leukocyte Esterase Negative, Urine WBC Occasional, Ur Squamous Epith Cells 3-5 I & O for Last 24 hours: Intake & Output 03/24/19 03/25/19 03/26/19 03/27/19 11:59 11:59 11:59 11:59 Intake Total Output Total 450 / 450 Balance -440 / -440 Weight 200 lb - Constitutional no acute distress, obese - *Routine HEENT Exam Head: Present: normocephalic, atraumatic Eye: Present: EOMI, PERRL. Absent: conjunctival icterus ENT: Present: mucous membranes dry - *Routine Neck Exam Absent: JVD - *Routine Respiratory Exam Present: decreased breath sounds, crackles - *Routine Cardiovascular Exam Present: RRR, murmur, S4 - *Routine Abdominal Exam Present: soft - *Routine Extremities Exam Present: edema. Absent: calf tenderness - *Routine Skin Exam Present: intact - *Routine Neurological Exam Present: alert, CN II-XII intact. Absent: motor deficit - Routine Psychiatric Exam Present: normal affect Assessment and Plan (1) GERD (gastroesophageal reflux disease) Current visit: Yes Status: Acute Qualifiers: Esophagitis presence: esophagitis presence not specified Qualified Code(s): K21.9 - Gastro-esophageal reflux disease without esophagitis Category: Medical Code(s): K21.9 - Gastro-esophageal reflux disease without esophagitis (2) CHF (congestive heart failure) Current visit: Yes Status: Chronic Qualifiers: Heart failure type: diastolic Heart failure chronicity: acute on chronic Qualified Code(s): I50.33 - Acute on chronic diastolic (congestive) heart fail ure Category: Medical Code(s): I50.9 - Heart failure, unspecified (3) Tobacco use Current visit: Yes Status: Acute Category: Medical Code(s): Z72.0 - Tobacco use (4) Obesity (BMI 30-39.9) Current visit: Yes Status: Acute Category: Medical Code(s): E66.9 - Obesity, unspecified (5) History of hysterectomy Current visit: Yes Status: Acute Category: Medical Code(s): Z90.710 - A cquired absence of both cervix and uterus (6) Diabetes 1.5, managed as type 2 Current visit: Yes Status: Acute Category: Medical Code(s): E13.9 - Other specified diabetes mellitus without complications (7) Hyperlipidemia Current visit: Yes Status: Acute Qualifiers: Hyperlipidemia type: unspecified Qualified Code(s): E78.5 - Hyperlipidemia, unspecified Category: Medical Code(s): E78.5 - Hyperlipidemia, unspecified (8) Hypertension Current visit: Yes Status: Acute Qualifiers: Hypertension type: essential hypertension Qualified Code(s): I10 - Essential (primary) hypertension Category: Medical Code(s): I10 - Essential (primary) hypertension (9) Chest pain Current visit: Yes Status: Acute Qualifiers: Chest pain type: unspecified Qualified Code(s): R07.9 - Chest pain, unspecified Category: Medical Code(s): R07.9 - Chest pain, unspecified
[2019-03-27 07:05] LABS: Anion Gap 7.9 mEq/L (5-15); Calcium 8.5 mg/dL (8.5-10.1); Potassium 3.9 mmoL/L (3.5-5.1)
--- NOTE | 2019-03-27 07:33 | Pharmacy Consult Notes ---
[facility] Pharmacy VTE Monitoring - Patient Demographics Admission date: 03/26/19 Report Date: 03/27/19 Time: 07:33 Allergies/Adverse Reactions: Patient Allergies acetaminophen [From Tylenol] Allergy (Unknown, Verified 03/26/19 14:07) lansoprazole [From Prevacid] Allergy (Unknown, Verified 03/26/19 14:07) omeprazole [From Prilosec] Allergy (Unknown, Verified 03/26/19 14:07) Sulfa (Sulfonamide Antibiotics) Allergy (Unknown, Verified 03/26/19 14:07) Height: 1.65 m Weight: 107.133 kg Patient Problems: Current Active Problems (Updated 03/26/19 @ 20:11 by Julio Cesar Trejo MD) CHF (congestive heart failure) (Chronic) - VTE Risk Labs: VTE Related Lab Results Hgb 12.6 g/dL (12.2-16.2) 03/26/19 15:34 Hct 41.6 % (37.0-47.0) 03/26/19 15:34 Plt Count 229 K/mm3 (142-424) 03/26/19 15:34 BUN 28 mg/dL (7-18) H D 03/27/19 06:40 Creatinine 0.72 mg/dL (0.55-1.02) 03/27/19 06:40 Estimated Creat Clear 94 mL/min (50-200) 03/27/19 06:40 Was VTE Risk Assessment Performed: Yes VTE Score: 8 VTE Risk Level: Moderate Risk Clinical Trial Participant: No - Prophylaxis VTE Prophylaxis Ordered?: Yes Types of VTE Prophylaxis: TEDS Knee High
[2019-03-27 08:46] LABS: Thyroid Stimulating Hormone 0.55 uIU/ml (0.358-3.740)
--- NOTE | 2019-03-27 09:52 | Consult Report ---
History of Present Illness Consult date: 03/27/19 (@ 0900) Requesting physician: Julio Cesar Trejo Consult reason: chest pain, shortness of breath Chief complaint: sob Additional Medical History:: 1. HTN 2. HLD 3. COPD 4. on home oxygen 5. diastolic chf 6. normal coronary arteries 01/28/19 [facility] ANGIOGRAPHIC RESULTS: 1. The left main artery normal 2. The left anterior descending artery normal 3. The circumflex artery normal 4. The right coronary artery dominant normal 5. The ELIAS ventriculogram reveals normal 65% 6. The left ventricular end-diastolic pressure 15 mmHg IMPRESSION: 1. Normal ejection fraction 2. Normal left ventricular function 3. Mildly elevated left ventricular end-diastolic pressure consistent with mild diastolic dysfunction 01/28/19 Echocardiogram CONCLUSION: 1. Mild biatrial enlargement, normal left ventricular size, mild concentric left ventricular hypertrophy, visually estimated ejection fraction 55% with no regional wall motion abnormality, grade 1 diastolic dysfunction seen without tissue Doppler evidence of raised left atrial pressure, vena cava is normal size with normal inspiratory collapse. 2. Mild mitral and tricuspid regurgitation 3. Small pericardial effusion noted. History of present illness: This is a 68-year-old female who was admitted to the hospital with complaints of shortness of breath. She states that for the last 4-5 days she has been having worsening shortness of breath. She is short of breath at rest and with exertion. It worsens with exertion. The shortness of breath is associated with a cough that produces clear sputum and bilateral lower extremity edema. She states nothing was helping her symptoms at home. The patient felt like she was having fluid in her lungs. She denies fever or chills. She is having orthopnea and tightness in the chest with the shortness of breath. The chest tightness is lasting about 5 minutes. She is on a Lasix at home and states that her urine output has been good. [facility] History I have reviewed the patient's past medical history: Yes Medical History: Reports:: Congestive Heart Failure, Chronic Obstructive Pulmonary Disease (COPD), Depression, Diabetes Mellitus Type 2, Gastroesophageal Reflux Disease(GERD), Home Oxygen, Hyperlipidemia, Hypertension, Myocardial Infarction *Have you ever received a pneumonia vaccine?: Yes *Have you received a flu vaccine this season?: Yes Other Surgeries: Yes: Cardiac Catheterization, Hysterectomy-Total - *Social History Educational Level: Attended High School Smoking Status: Current every day smoker Tobacco Type: cigarettes # Packs/Day (cigarettes): 1 #Yrs smoked (if former smoker): 50 Alcohol Intake: never Substance Use Type: denies use *Occupational Status:: retired Housing: longterm Household Members: caregiver, other *Travel in the last 8 weeks: None - Psychiatric History Expresses thoughts of harming self/others: None Suicide Plan Description: No Plan Pschychiatric History:: Reports:: Depression Family Hx:: Unable to obtain Meds Home Medications Medication Instructions Recorded Confirmed Type Aspirin [Low Dose Aspirin EC] 81 mg PO DAILY 01/07/19 03/26/19 History Gabapentin [Gabapentin 100mg Cap] 100 mg PO BID 01/07/19 03/27/19 History Insulin Detemir [Levemir 100 30 unit SQ DAILY 01/07/19 03/27/19 History units/mL 10mL vial] Insulin Lispro [Humalog] 1 sliding scale dose SQ DIRECTED 01/07/19 03/27/19 History Mirtazapine 30 mg PO HS 01/07/19 03/26/19 History PARoxetine HCl [Paxil] 30 mg PO DAILY 01/07/19 03/26/19 History raNITIdine HCl [Ranitidine HCl] 150 mg PO BID 01/07/19 03/26/19 History Fluticasone/Salmeterol [Advair 1 puff INHALATION BID 01/27/19 03/26/19 History 500/50mcg diskus] Latanoprost/Pf [Latanoprost 0.005% 1 drp OP HS 01/27/19 03/26/19 History Eye Drop] Irbesartan [Avapro 75mg 75 mg PO DAILY 02/14/19 03/26/19 History tablet] Tiotropium [place] [Spiriva 1 puffs IH DAILY 02/14/19 03/26/19 History 18mcg/puff inhaler] Ziprasidone HCl [Geodon 20mg 40 mg PO BID 02/14/19 03/26/19 History capsule] Brimonidine Tartrate [Alphagan P] 1 drp OP TID 03/27/19 03/27/19 History Carvedilol [Carvedilol 3.125mg Tab] 3.125 mg PO BID 03/27/19 03/27/19 History Allergies Allergy/AdvReac Type Severity Reaction Status Date / Time acetaminophen [From Tylenol] Allergy Unknown Verified 03/26/19 14:07 lansoprazole [From Prevacid] Allergy Unknown Verified 03/26/19 14:07 omeprazole [From Prilosec] Allergy Unknown Verified 03/26/19 14:07 Sulfa (Sulfonamide Allergy Unknown Verified 03/26/19 14:07 Antibiotics) Review of Systems - Review of Systems Review of systems:: pertinent systems reviewed and negative unless documented below - *Cardiovascular Reports chest pain, Reports chest pain at rest, Reports chest pain with activity, Reports shortness of breath, Reports shortness of breath with activity, Reports shortness of breath when lying down - *Respiratory Reports cough (With clear sputum production), Reports shortness of breath, Reports shortness of breath with activity - *Neurologic Reports weakness, Denies seizure-like activity Exam Vital signs and Labs for Last 24 Hours: Temp Pulse Resp BP Pulse Ox 98.4 F 83 16 140/83 93 L 03/27/19 08:00 03/27/19 08:00 03/27/19 08:00 03/27/19 08:00 03/27/19 08:00 Laboratory Results - last 24 hr 03/26/19 15:34: WBC 8.8, RBC 4.98, Hgb 12.6, Hct 41.6, MCV 83.4, MCH 25.2 L, MCHC 30.2 L, RDW 14.7, Plt Count 229, MPV 7.9, Neut % (Auto) 72.9, Lymph % (Auto) 16.6, [place] % (Auto) 6.3, Eos % (Auto) 3.8, Baso % (Auto) 0.5, Neut # (Auto) 6.4, Lymph # (Auto) 1.5, [place] # (Auto) 0.6, Eos # (Auto) 0.3, Baso # (Auto) 0.1 03/26/19 15:34: Sodium 142, Potassium 4.6, Chloride 102, Carbon Dioxide 38 H, Anion Gap 6.6, BUN 21 H, Creatinine 0.67, Estimated Creat Clear 79, Estimated GFR 88, Est GFR ( Amer) 107, Glucose 262 H, Calcium 8.8 03/26/19 15:34: Lactate 1.2 03/26/19 15:34: B-Natriuretic Peptide 22 03/26/19 15:34: Troponin I 0.02 03/26/19 16:20: Urine Color Yellow, Urine Appearance Clear, Urine pH 7.0, Ur Specific [place] 1.010, Urine Protein Negative, Urine Glucose (UA) Negative, Urine Ketones Negative, Urine Blood Negative, Urine Nitrate Negative, Urine Bilirubin Negative, Urine Urobilinogen 0.2, Ur Leukocyte Esterase Negative, Urine WBC Occasional, Ur Squamous Epith Cells 3-5 03/26/19 21:41: POC Glucose 328 H* 03/27/19 06:02: POC Glucose 335 H* 03/27/19 06:40: Sodium 139, Potassium 3.9, Chloride 100, Carbon Dioxide 35 H, Anion Gap 7.9, BUN 28 H D, Creatinine 0.72, Estimated Creat Clear 94, Estimated GFR 81, Est GFR ( Amer) 98, Glucose 318 H D, Calcium 8.5 03/27/19 06:40: TSH 0.55, Thyroxine (T4) 5.2 03/27/19 06:40: Hemoglobin A1c 8.4 H I & O for Last 24 hours: Intake & Output 03/24/19 03/25/19 03/26/19 03/27/19 23:59 23:59 23:59 23:59 Intake Total 360 / 360 Output Total 1650 / 1650 1775 / 1775 Balance -1640 / -1640 -1415 / -1415 Weight 236 lb 3 oz Narrative: Her EKG is sinus rhythm with poor R wave progression and PVCs. Her heart rate is 78. - Constitutional no acute distress, obese, chronically ill appearing - *Routine HEENT Exam Head: Present: normocephalic, atraumatic Eye: Present: EOMI, PERRL ENT: Present: mucous membranes moist - *Routine Neck Exam Present: supple, full ROM, normal carotid upstroke. Absent: JVD, carotid bruit, lymphadenopathy - *Routine Respiratory Exam Present: decreased breath sounds, wheezes (Expiratory) - *Routine Cardiovascular Exam Present: RRR, Normal S1, Normal S2. Absent: murmur, gallop - *Routine Abdominal Exam Present: soft, normoactive bowel sounds. Absent: tenderness, distended - *Routine Extremities Exam Present: full ROM, pulses intact, normal capillary refill. Absent: cyanosis, clubbing, edema - *Routine Skin Exam Present: intact, erythema (Is noted to the bilateral lower extremities), warm. Absent: rash - *Routine Neurological Exam Present: alert, oriented X3, CN II-XII intact. Absent: sensory deficit, motor deficit - Routine Psychiatric Exam Present: normal affect, normal thought process - Detailed Eye Exam Eyelids: Left normal inspection Assessment and Plan (1) Acute on chronic diastolic (congestive) heart failure Current visit: Yes Status: Acute Category: Medical Code(s): I50.33 - Acute on chronic diastolic (congestive) heart failure (2) Shortness of breath Current visit: Yes Status: Acute Category: Medical Code(s): R06.02 - Shortness of breath (3) Chest pain Current visit: Yes Status: Acute Qualifiers: Chest pain type: unspecified Qualified Code(s): R07.9 - Chest pain, unspecified Category: Medical Code(s): R07.9 - Chest pain, unspecified (4) Tobacco use Current visit: Yes Status: Acute Category: Medical Code(s): Z72.0 - Tobacco use (5) Obesity (BMI 30-39.9) Current visit: Yes Status: Acute Category: Medical Code(s): E66.9 - Obesity, unspecified (6) History of hysterectomy Current visit: Yes Status: Acute Category: Medical Code(s): Z90.710 - Acquired absence of both cervix and uterus (7) Diabetes 1.5, managed as type 2 Current visit: Yes Status: Acute Category: Medical Code(s): E13.9 - Other specified diabetes mellitus without complications (8) Hyperlipidemia Current visit: Yes Status: Acute Qualifiers: Hyperlipidemia type: unspecified Qualified Code(s): E78.5 - Hyperlipidemia, unspecified Category: Medical Code(s): E78.5 - Hyperlipidemia, unspecified (9) Hypertension Current visit: Yes Status: Acute Qualifiers: Hypertension type: essential hypertension Qualified Code(s): I10 - Essential (primary) hypertension Category: Medical Code(s): I10 - Essential (primary) hypertension (10) GERD (gastroesophageal reflux disease) Current visit: Yes Status: Acute Qualifiers: Esophagitis presence: esophagitis presence not specified Qualified Code(s): K21.9 - Gastro-esophageal reflux disease without esophagitis Category: Medical Code(s): K21.9 - Gastro-esophageal reflux disease without esophagitis (11) Coronary arteries, normal Current visit: Yes Status: Acute Category: Medical Code(s): Z03.89 - Encounter for observation for other suspected diseases and conditions ruled out (12) Elevated left ventricular end-diastolic pressure (LVEDP) Current visit: Yes Status: Acute Category: Medical Code(s): R94.30 - Abnormal result of cardiovascular function study, unspecified - Assessment and plan all Dx Assessment and Plan for all problems:: Plan: 1. The patient was admitted with shortness of breath and edema. The patient was also having chest tightness associated with her shortness of breath as well as a cough. Her symptoms had been going on for approximately 4 to 5 days prior to her coming into the emergency department. The patient is being treated for acute on chronic diastolic congestive heart failure. She is getting IV Lasix and has diuresed well. We will continue her IV Lasix at this time with plans to convert her to oral Lasix tomorrow. 2. The patient's BNP was negative at 22 but her chest x-ray showed congestive heart failure. It is unlikely that diastolic heart failure and an elevated LVEDP at only 15 mmHg will cause pulmonary edema and overt biventricular heart failure. There may be some other underlying cause for her overt congestive heart failure. Will obtain a high-resolution CT of the chest today. 3. The patient has normal coronary arteries. She did have a heart cath in January 2019. No plans for invasive testing at this time. 4. Her blood pressure is acceptable at this time. 5. Her LDL goal is less than 100. 6. The patient is diabetic. She does need aggressive control of her diabetes. Will defer this to her primary care provider, Dr. Trejo. 7. Weight loss is highly advised and counseled. 8. Further recommendations will be made pending the patient's response to treatment and the results of her high-resolution CT of the chest later today. Thank you for the opportunity to help participate in the care of this patient.
--- NOTE | 2019-03-27 14:29 | Progress Note ---
Internal Medicine - PN: Subj *Date: 03/28/19 *Time: 07:30 Interval history: feeling better but still with sob Exam Vital signs and Labs for Last 24 Hours: Temp Pulse Resp BP Pulse Ox 98.4 F 83 16 140/83 93 L 03/27/19 08:00 03/27/19 08:00 03/27/19 08:00 03/27/19 08:00 03/27/19 08:00 Laboratory Results - last 24 hr 03/26/19 15:34: WBC 8.8, RBC 4.98, Hgb 12.6, Hct 41.6, MCV 83.4, MCH 25.2 L, MCHC 30.2 L, RDW 14.7, Plt Count 229, MPV 7.9, Neut % (Auto) 72.9, Lymph % (Auto) 16.6, [place] % (Auto) 6.3, Eos % (Auto) 3.8, Baso % (Auto) 0.5, Neut # (Auto) 6.4, Lymph # (Auto) 1.5, [place] # (Auto) 0.6, Eos # (Auto) 0.3, Baso # (Auto) 0.1 03/26/19 15:34: Sodium 142, Potassium 4.6, Chloride 102, Carbon Dioxide 38 H, Anion Gap 6.6, BUN 21 H, Creatinine 0.67, Estimated Creat Clear 79, Estimated GFR 88, Est GFR ( Amer) 107, Glucose 262 H, Calcium 8.8 03/26/19 15:34: Lactate 1.2 03/26/19 15:34: B-Natriuretic Peptide 22 03/26/19 15:34: Troponin I 0.02 03/26/19 16:20: Urine Color Yellow, Urine Appearance Clear, Urine pH 7.0, Ur Specific [place] 1.010, Urine Protein Negative, Urine Glucose (UA) Negative, Urine Ketones Negative, Urine Blood Negative, Urine Nitrate Negative, Urine Bilirubin Negative, Urine Urobilinogen 0.2, Ur Leukocyte Esterase Negative, Urine WBC Occasional, Ur Squamous Epith Cells 3-5 03/26/19 21:41: POC Glucose 328 H* 03/27/19 06:02: POC Glucose 335 H* 03/27/19 06:40: Sodium 139, Potassium 3.9, Chloride 100, Carbon Dioxide 35 H, Anion Gap 7.9, BUN 28 H D, Creatinine 0.72, Estimated Creat Clear 94, Estimated GFR 81, Est GFR ( Amer) 98, Glucose 318 H D, Calcium 8.5 03/27/19 06:40: TSH 0.55, Thyroxine (T4) 5.2 03/27/19 06:40: Hemoglobin A1c 8.4 H 03/27/19 11:13: POC Glucose 351 H* I & O for Last 24 hours: Intake & Output 03/25/19 03/26/19 03/27/19 03/28/19 11:59 11:59 11:59 11:59 Intake Total 370 / 370 480 / 480 Output Total 3425 / 3425 Balance -3055 / -3055 480 / 480 Weight 236 lb 3.005 oz - Constitutional no acute distress, obese - *Routine HEENT Exam Head: Present: normocephalic Eye: Present: EOMI, PERRL ENT: Present: mucous membranes dry - *Routine Neck Exam Absent: JVD - *Routine Respiratory Exam Present: decreased breath sounds - *Routine Cardiovascular Exam Present: RRR, murmur, S4 - *Routine Abdominal Exam Present: soft - *Routine Extremities Exam Absent: calf tenderness - *Routine Skin Exam Present: intact - *Routine Neurological Exam Present: alert, CN II-XII intact - Routine Psychiatric Exam Present: normal affect Assessment and Plan (1) Acute on chronic diastolic (congestive) heart failure Current visit: Yes Status: Acute Category: Medical Code(s): I50.33 - Acute on chronic diastolic (congestive) heart failure (2) Shortness of breath Current visit: Yes Status: Acute Category: Medical Code(s): R06.02 - Shortness of breath (3) Chest pain Current visit: Yes Status: Acute Qualifiers: Chest pain type: unspecified Qualified Code(s): R07.9 - Chest pain, unspecified Category: Medical Code(s): R07.9 - Chest pain, unspecified (4) Tobacco use Current visit: Yes Status: Acute Category: Medical Code(s): Z72.0 - Tobacco use (5) Obesity (BMI 30-39.9) Current visit: Yes Status: Acute Category: Medical Code(s): E66.9 - Obesity, unspecified (6) History of hysterectomy Current visit: Yes Status: Acute Category: Medical Code(s): Z90.710 - Acquired absence of both cervix and uterus (7) Diabetes 1.5, managed as type 2 Current visit: Yes Status: Acute Category: Medical Code(s): E13.9 - Other specified diabetes mellitus without complications (8) Hyperlipidemia Current visit: Yes Status: Acute Qualifiers: Hyperlipidemia type: unspecified Qualified Code(s): E78.5 - Hyperlipidemia, unspecified Category: Medical Code(s): E78.5 - Hyperlipidemia, unspecified (9) Hypertension Current visit: Yes Status: Acute Qualifiers: Hypertension type: essential hypertension Qualified Code(s): I10 - Essential (primary) hypertension Category: Medical Code(s): I10 - Essential (primary) hypertension (10) GERD (gastroesophageal reflux disease) Current visit: Yes Status: Acute Qualifiers: Esophagitis presence: esophagitis presence not specified Qualified Code(s): K21.9 - Gastro-esophageal reflux disease without esophagitis Category: Medical Code(s): K21.9 - Gastro-esophageal reflux disease without esophagitis (11) Coronary arteries, normal Current visit: Yes Status: Acute Category: Medical Code(s): Z03.89 - Encounter for observation for other suspected diseases and conditions ruled out (12) Elevated left ventricular end-diastolic pressure (LVEDP) Current visit: Yes Status: Acute Category: Medical Code(s): R94.30 - Abnormal result of cardiovascular function study, unspecified
--- NOTE | 2019-03-28 08:45 | Progress Note ---
Subjective Date: 03/28/19 Time: 08:43 Principal diagnosis: SOA Interval history: 68 yo WF in chair in NAD. States she is feeling and breathing better. Wants to go home. Exam Vital signs and Labs for Last 24 Hours: Temp Pulse Resp BP Pulse Ox 97.8 F 69 18 129/72 94 L 03/28/19 08:00 03/28/19 08:00 03/28/19 08:00 03/28/19 08:00 03/28/19 08:00 Laboratory Results - last 24 hr 03/27/19 06:40: TSH 0.55, Thyroxine (T4) 5.2 03/27/19 06:40: Hemoglobin A1c 8.4 H 03/27/19 11:13: POC Glucose 351 H* 03/27/19 16:18: POC Glucose 144 H 03/27/19 20:43: POC Glucose 211 H 03/28/19 05:47: POC Glucose 151 H I & O for Last 24 hours: Intake & Output 03/25/19 03/26/19 03/27/19 03/28/19 11:59 11:59 11:59 11:59 Intake Total 370 / 370 1920 / 1920 Output Total 3425 / 3425 1400 / 1400 Balance -3055 / -3055 520 / 520 Weight 236 lb 3.005 oz 231 lb 2 oz - *Routine HEENT Exam Head: Present: normocephalic Eye: Present: EOMI, PERRL ENT: Present: mucous membranes moist - *Routine Respiratory Exam Present: CTA bilaterally. Absent: accessory muscle use, rales, rhonchi, wheezes - *Routine Cardiovascular Exam Present: RRR. Absent: murmur, gallop, rubs - *Routine Extremities Exam Absent: edema, calf tenderness - *Routine Neurological Exam Present: alert, oriented X3, moving all extremities Progress Note: A&P (1) Acute on chronic diastolic (congestive) heart failure Status: Acute Current Visit: Yes (2) Shortness of breath Status: Acute Current Visit: Yes (3) Chest pain Status: Acute Current Visit: Yes (4) Tobacco use Status: Acute Current Visit: Yes (5) Obesity (BMI 30-39.9) Status: Acute Current Visit: Yes (6) History of hysterectomy Status: Acute Current Visit: Yes (7) Diabetes 1.5, managed as type 2 Status: Acute Current Visit: Yes (8) Hyperlipidemia Status: Acute Current Visit: Yes (9) Hypertension Status: Acute Current Visit: Yes (10) GERD (gastroesophageal reflux disease) Status: Acute Current Visit: Yes (11) Coronary arteries, normal Status: Acute Current Visit: Yes (12) Elevated left ventricular end-diastolic pressure (LVEDP) Status: Acute Current Visit: Yes Assessment and Plan for All Diagnoses:: Echo shows normal LVEF with mild to mod valve disease. Mild pericardial effusion without ventricular compromise. OK to discharge home on coreg 3.125 mg BID, aspirin 81 mg daily, avapro 75 mg daily with lasix 40 mg daily. F/u in 2 wks. BMP in one week to assess BMP.
--- NOTE | 2019-03-28 09:18 | Discharge Summary ---
General - General Admission date:: 03/26/19 Discharge date: 03/28/19 HPI HPI: 68-year-old female patient sitting up in chair this morning respirations were easy and even, denies chest pain or shortness of breath. States she is ready to go home and feeling better. this wf presented to the ed with sob omplains of shortness of breath, cough producing clear sputum, and swelling of legs for 4 to 5 days. Feels like she has fluid in her lungs. Denies fever. Has had a tightness in her chest off and on that lasts about 5 minutes per episode. Says that she is seen Dr. Saini for cardiology here before. She takes Lasix 40 mg once a day and says she has been having a good diuretic response. pt did report some chest pain su with exertion - pt admitted for treatment and eval (Per DR. Trejo) Hospital Course Hospital Course: 03/26/2019 CXR IMPRESSION: Congestive heart failure Dictated By: Wes Smith MD 03/27/[address]: IMPRESSION: 1. Centrilobular emphysema with mild pulmonary fibrotic changes with scattered areas of atelectasis or scarring and left lower lobe atelectasis or infiltrate. 2. Pericardial effusion. 3. Gas distended loop of bowel in the anterior abdomen likely related to distended sigmoid colon. Acute abdominal series may confirm. Dictated By: Wes Smith MD 68-year-old female patient was admitted from extended care facility for chest pain, shortness of breath, and increased bilateral lower extremity edema. Since then she has had a chest CT showing pericardial effusion pericardial effusion and a chest x-ray showing congestive heart failure. Cardiology has seen and made their recommendations which will be followed and requesting that she follow-up with them in 2 weeks. She is sitting up in the chair this morning in no distress states she is ready to go back home she will be discharged to extended care facility. She will follow-up in primary care office in 1 week Objective Vital signs: Temp Pulse Resp BP Pulse Ox 97.8 F 69 18 129/72 95 03/28/19 08:00 03/28/19 08:00 03/28/19 08:00 03/28/19 08:00 03/28/19 08:00 no acute distress - *Routine HEENT Exam Head: Present: normocephalic Eye: Present: EOMI, PERRL ENT: Present: mucous membranes moist - *Routine Neck Exam Present: JVD - *Routine Respiratory Exam Present: decreased breath sounds - *Routine Cardiovascular Exam Present: murmur - *Routine Abdominal Exam Present: soft, normoactive bowel sounds. Absent: tenderness - *Routine Extremities Exam Present: edema - Routine Back/Spine/Pelvis Exam Back/Spine: Absent: CVA tenderness, muscle spasm - *Routine Skin Exam Present: intact - *Routine Neurological Exam Present: alert, oriented X3, CN II-XII intact - Routine Psychiatric Exam Present: normal affect Results Labs on day of discharge: Labs from last 24 hours 03/28/19 03/27/19 03/27/19 05:47 20:43 16:18 POC Glucose 151 H 211 H 144 H Hemoglobin A1c 03/27/19 03/27/19 11:13 06:40 POC Glucose 351 H* Hemoglobin A1c 8.4 H - Additional Comments Rounds per Dr. Trejo orders per Dr. Trejo DS: Diagnosis - Discharge Diagnosis (1) Acute on chronic diastolic (congestive) heart failure Status: Acute (2) Shortness of breath Status: Acute (3) Chest pain Status: Acute (4) Tobacco use Status: Acute (5) Obesity (BMI 30-39.9) Status: Acute (6) History of hysterectomy Status: Acute (7) Diabetes 1.5, managed as type 2 Status: Acute (8) Hyperlipidemia Status: Acute (9) Hypertension Status: Acute (10) GERD (gastroesophageal reflux disease) Status: Acute (11) Coronary arteries, normal Status: Acute (12) Elevated left ventricular end-diastolic pressure (LVEDP) Status: Acute Discharge Plan - Patient Discharge Instructions ACTIVITY: Continue current activity DIET: continue same diet Patient Instructions: Heart Failure, DI for Heart Failure - Follow up Plan Follow up with: Matthew Saini MD [Staff Physician] - 2 weeks Julio Cesar Trejo MD [Primary Care Provider] - 1 week Disposition: er [facility] Home Medications: Home Medications Medication Instructions Recorded Confirmed Type Aspirin [Low Dose Aspirin EC] 81 mg PO DAILY 01/07/19 03/26/19 History Gabapentin [Gabapentin 100mg Cap] 100 mg PO BID 01/07/19 03/27/19 History Insulin Detemir [Levemir 100 30 unit SQ DAILY 01/07/19 03/27/19 History units/mL 10mL vial] Insulin Lispro [Humalog] 1 sliding scale dose SQ DIRECTED 01/07/19 03/27/19 History Mirtazapine 30 mg PO HS 01/07/19 03/26/19 History PARoxetine HCl [Paxil] 30 mg PO DAILY 01/07/19 03/26/19 History raNITIdine HCl [Ranitidine HCl] 150 mg PO BID 01/07/19 03/26/19 History Fluticasone/Salmeterol [Advair 1 puff INHALATION BID 01/27/19 03/26/19 History 500/50mcg diskus] Latanoprost/Pf [Latanoprost 0.005% 1 drp OP HS 01/27/19 03/26/19 History Eye Drop] Irbesartan [Avapro 75mg 75 mg PO DAILY 02/14/19 03/26/19 History tablet] Tiotropium [place] [Spiriva 1 puffs IH DAILY 02/14/19 03/26/19 History 18mcg/puff inhaler] Ziprasidone HCl [Geodon 20mg 40 mg PO BID 02/14/19 03/26/19 History capsule] Brimonidine Tartrate [Alphagan P] 1 drp OP TID 03/27/19 03/27/19 History Carvedilol [Carvedilol 3.125mg Tab] 3.125 mg PO BID 03/27/19 03/27/19 History Carvedilol [Coreg 3.125mg 3.125 mg PO BID 30 Days #60 tab 03/28/19 Rx Tablet] Furosemide [Lasix 40mg tab] 40 mg PO DAILY 30 Days #30 tab 03/28/19 Rx Irbesartan [Avapro 75mg 75 mg PO DAILY 30 Days #30 tab 03/28/19 Rx tablet] Prescriptions/Medication Reconciliation: New Irbesartan [Avapro 75mg tablet] 75 mg PO DAILY 30 Days #30 tab Furosemide [Lasix 40mg tab] 40 mg PO DAILY 30 Days #30 tab Carvedilol [Coreg 3.125mg Tablet] 3.125 mg PO BID 30 Days #60 tab Continued Mirtazapine 30 mg PO HS raNITIdine HCl [Ranitidine HCl] 150 mg PO BID Insulin Detemir [Levemir 100 units/mL 10mL vial] 30 unit SQ DAILY Insulin Lispro [Humalog] 1 sliding scale dose SQ DIRECTED Gabapentin [Gabapentin 100mg Cap] 100 mg PO BID Aspirin [Low Dose Aspirin EC] 81 mg PO DAILY PARoxetine HCl [Paxil] 30 mg PO DAILY Fluticasone/Salmeterol [Advair 500/50mcg diskus] 1 puff INHALATION BID Latanoprost/Pf [Latanoprost 0.005% Eye Drop] 1 drp OP HS Ziprasidone HCl [Geodon 20mg capsule] 40 mg PO BID Tiotropium [place] [Spiriva 18mcg/puff inhaler] 1 puffs IH DAILY Irbesartan [Avapro 75mg tablet] 75 mg PO DAILY Carvedilol [Carvedilol 3.125mg Tab] 3.125 mg PO BID Brimonidine Tartrate [Alphagan P] 1 drp OP TID
--- NOTE | 2019-03-28 16:13 | Cardiology Report ---
PROCEDURE: 2-D M-mode and color Doppler study INDICATIONS FOR THE TEST: Chest pain + COPD+ Heart Murmur Tobacco Smoking+ Palpitations Fatigue Syncope Edema+ Hypertension+Diabetes Mellitus+ Rheumatic Fever SOB+ESTRADA Obesity+Hyperlipidemia+ Family History HD Additional History PERICARDIAL EFFUSION, HOME O2 PATIENT INFORMATION HEIGHT: 64 WEIGHT:236 GENDER: Female B/P:140/83 2-D/M-MODE INTERPRETATION: 2-D MEASUREMENTS OBSERVED VALUES IN CMS Right Ventricular Dimension (RVDd) 2.9 Interventricular Septum (Thickness)(IVsd) 1.5 Left Ventricular Internal Dimensions(LVIDd) 5.0 Left Ventricular Posterior Wall (Thickness)(LVPWd) 1.1 Aortic Root 3.7 Aortic Cusp Separation 2.3 Left Atrial Dimensions (LAD) 3.4 2D 1. Left atrium is mildly enlarged, left ventricle is normal size, there is mild concentric left ventricular hypertrophy seen, visually estimated ejection fraction 55% with no regional wall motion abnormality. 2. The right atrium and right ventricle are mildly enlarged with normal contractility. 3. The aortic valve is minimally thickened and fibrosed. 4. The mitral and tricuspid valve leaflets are minimally thickened. 5. The pulmonic valve is poorly visualized. 6. Small pericardial effusion noted. DOPPLER INTERROGATION: Doppler interrogation of the aortic, mitral and tricuspid valvular presence of mild mitral and tricuspid regurgitation, tricuspid regurgitation jet velocity is inadequate for calculation of the right ventricular systolic pressure, grade 1 diastolic dysfunction seen with tissue Doppler evidence of raised left atrial pressure. CONCLUSION: 1. Biatrial enlargement, normal left ventricular size, mild concentric left ventricular hypertrophy, visually estimated ejection fraction 55% with no regional wall motion abnormality, grade 1 diastolic dysfunction seen with tissue Doppler evidence of raised left atrial pressure. 2. Mildly enlarged right ventricle with normal contractility. 3. Mild mitral and tricuspid regurgitation 4. Small pericardial effusion noted.
== END 2019-03-28 12:10 | DRG 293 ==
LOC: ER 14:50 → 2ND 14:50 → OBSVTOIN 20:26 → INTOOBSV 20:26 → 2ND 20:27
PROVIDERS: ADMIT Internal Medicine Adolescent Medicine; ATTEND Emergency Medicine
DX: Z79.4 Long term (current) use of insulin; R07.9 Chest pain, unspecified; E78.5 Hyperlipidemia, unspecified; Z88.6 Allergy status to analgesic agent; Z88.8 Allergy status to other drugs, medicaments and biological substances; Z80.9 Family history of malignant neoplasm, unspecified; Z88.2 Allergy status to sulfonamides; I50.33 Acute on chronic diastolic (congestive) heart failure; R94.30 Abnormal result of cardiovascular function study, unspecified; Z79.899 Other long term (current) drug therapy; Z68.38 Body mass index [BMI] 38.0-38.9, adult; F32.9 Major depressive disorder, single episode, unspecified; K21.9 Gastro-esophageal reflux disease without esophagitis; J44.9 Chronic obstructive pulmonary disease, unspecified; E66.9 Obesity, unspecified; R06.02 Shortness of breath; Z72.0 Tobacco use; Z99.81 Dependence on supplemental oxygen; Z90.710 Acquired absence of both cervix and uterus; Z79.82 Long term (current) use of aspirin; I11.0 Hypertensive heart disease with heart failure; E13.9 Other specified diabetes mellitus without complications
CPT/HCPCS: 71020; 71046; 71250; 80048; 81001; 82962; 83036; 83605; 83880; 84436; 84443; 84484; 85025; 87040; 93005; 93306; 94640; 94761; 99283; G0378

== ENCOUNTER → 2019-04-16 23:57 | Outpatient (CLI) | payer MEDICARE, MEDICAID, SELFPAY ==
[2019-04-17 00:13] LABS: Adenovirus F 40/41, stool Not Detected (NotDetected); Astrovirus Not Detected (NotDetected); Campylobacter Not Detected (NotDetected); Clostridium Difficile A/B, PCR Not Detected (NotDetected); Cryptosporidium Not Detected (NotDetected); Cyclospora Cayetanesis Not Detected (NotDetected); Entamoeba histolytica Not Detected (NotDetected); Enteropathogenic E coli Not Detected (NotDetected); Enterotoxigenic E coli Not Detected (NotDetected); Giardia lamblia Not Detected (NotDetected); Norovirus Not Detected (NotDetected); Plesimonas Shigalloides, PCR Not Detected (NotDetected); Rotavirus A Not Detected (NotDetected); Salmonella, PCR Not Detected (NotDetected); Sapovirus Not Detected (NotDetected); Shiga-like toxin E coli Not Detected (NotDetected); Shigella Enterovasive E coli Not Detected (NotDetected); Vibrio Cholerae Not Detected (NotDetected); Vibrio, PCR Not Detected (NotDetected); Yersinia Entercolitica, PCR Not Detected (NotDetected)
[2019-04-17 03:01] LABS: Enteroaggregative E coli Detected (NotDetected)
== END ==
PROVIDERS: Visit Provider Emergency Medicine
DX: R19.5 Other fecal abnormalities (principal); A04.0 Enteropathogenic Escherichia coli infection; A04.72 Enterocolitis due to Clostridium difficile, not specified as recurrent
CPT/HCPCS: 87506

== ENCOUNTER → 2019-05-09 14:26 | Outpatient (CLI) | payer MEDICARE, MEDICAID, SELFPAY | PROVIDERS: Visit Provider Urology | DX: R39.89 Other symptoms and signs involving the genitourinary system (principal) | CPT/HCPCS: 87086; 87088; 87186 ==

== ENCOUNTER → 2019-07-01 10:23 | Outpatient (CLI) | payer MEDICARE, MEDICAID, SELFPAY ==
--- NOTE | 2019-07-01 10:27 | FL_ITS ---
PROCEDURE: FL BARIUM SWALLOW MODIFIED CLINICAL INDICATION: DETERMINE SAFE DIET Aspiration pneumonia COMPARISON: No exams were available for comparison TECHNIQUE: Patient administered varying consistencies of barium contrast, while viewed in lateral position under real-time fluoroscopy with cine recording. FLUOROSCOPY TIME: The study was performed in conjunction with speech pathologist. Please see that report & recommendations. FINDINGS: Patient was given varying consistencies of barium. There was vestibular penetration with thin and nectar consistency. There was some delay in initiation of the swallowing mechanism patient swallowed pure a honey mechanical soft and a pill without aspiration or significant penetration. IMPRESSION: Vestibular penetration with thin and nectar consistency with delay in initiation of the swallowing mechanism Please see speech pathologist report and recommendations. Dictated by: Wes Smiht MD 07/03/2019 17:01 Signed by: <Electronically signed by Wes Smith MD in [place]> 07/03/2019 17:01
--- NOTE | 2019-07-01 11:59 | HMH.SLMBS2 ---
Speech & Language Evaluation Speech/Language Mod Barium Swallow Start: 07/01/19 11:39 Freq: once Status: Complete Protocol: Document 07/01/19 11:39 CARMELA (Rec: 07/01/19 11:59 [email or web address] [id number]) MBS Recommendations Diet Dietary Recommendations Dysphagia Mechanical Soft, Honey Liquids Treatment/Strategies Strategy/Precaution Recommend Chin Tuck Mod Barium Swallow Impressions Summary and Impressions Oral Phase Impression Mild Impairment Oral Phase Summary Edentulous Pharyngeal Phase Impression Moderate Impairment Pharyngeal Phase Summary Penetration with thin, and nectar consistencies; Speech/Language MBS Assessment/Goals/Plan Assessment Date of Evaluation: 07/01/19 Evaluation Type Initial Certification Assessment/Problems Recent PNA after upgrade of diet; Dysphagia Does Patient Qualify for Service No Qualify/Failure Comment PT will be followed by SN[facility] to evaluate for further needs . Recommendations PHYSICIAN CERTIFICATION: The specified therapy services are required, authorized, and reviewed every 30 days. Diet Recommendations Dysphagia Mechanical Soft Liquid Type Recommendations Honey Consistency SL Swallow Guidelines High aspiration risk Dysphagia Swallow Precautions/Strategies Sitting Upright (90 deg),Chin Tuck,No Straw Comment Patient has a natural chin tuck when seated for exam. Plan Pt/Guardian verbally ack understanding Yes of dx/prognosis/goals Pt/Guardian verbally ack understanding Yes of/consent to tx prog G -code Required Yes G-CODES ST Current Status [id number] ST Current Status Modifier CK-At least 40% but less than 60% impaired, limited or restricted ST Goal Status [id number] ST Goal Status Modifier CK-At least 40% but less than 60% impaired, limited or restricted Education Instructions provided [facility] contacted with results. Pt/Caregiver able to recall information Able to recall/restate Reinforcement needed Yes Mod Barium Swallow Setup Exam Setup Radiologist Wes Smith Level of Consciousness Awake,Alert,Appropriate, Follows Commands Position (degrees) 90 Mod Barium Swallow-Lat View Textures Lateral View Food Presentation Thin Liquid via Cup,Thin Liquid via Straw,[place] Liquid via Cup,Honey Liquid v
== END ==
PROVIDERS: PCP Emergency Medicine; Visit Provider Emergency Medicine
DX: R13.10 Dysphagia, unspecified (principal)
CPT/HCPCS: 70371; 92611